=== PATIENT | female | born 1940 | race Caucasian/White ===

== ENCOUNTER 2018-08-30 10:48 | Emergency (ER) | payer MEDICARE, OTHER ==
[~2018-08-30] VITALS: Ht 162.6 cm; Wt 70.5 kg
[2018-08-30] MEDS ORDERED: LORazepam 1 MG tablet PO ONE (10:50)
[2018-08-30] MEDS ORDERED: ondansetron 4mg rapidly disintigrating tab PO ONE (10:55)
[2018-08-30 11:03] VITALS: BP 165/62
[2018-08-30] MEDS ORDERED: LISI40TA4 PO (16:25)
[2018-08-30] MEDS ORDERED: CITA10TA9 PO (16:25)
[2018-08-30] MEDS ORDERED: ROSU20TA2 PO (16:25)
[2018-08-30] MEDS ORDERED: SYN0.088T PO (16:25)
[2018-08-30] MEDS ORDERED: DEXL60CA3 PO (16:25)
[2018-08-30] MEDS ORDERED: CARV-50 PO (16:25)
[2018-08-30] MEDS ORDERED: MELO15TA13 PO (16:25)
== END 2018-08-30 11:30 | disposition home or self-care (01) ==
LOC: ER 10:49
DX: F41.9 Anxiety disorder, unspecified (principal)
CPT/HCPCS: 99284

== ENCOUNTER 2018-09-15 05:24 | Inpatient (IN) | payer MEDICARE, OTHER | END 2018-09-16 16:17 | disposition home or self-care (01) | LOC: PAS IN 05:24 → ORTHO 4S 11:15 | DX: M19.011 Primary osteoarthritis, right shoulder (principal); M75.111 Incomplete rotator cuff tear or rupture of right shoulder, not specified as traumatic; M25.511 Pain in right shoulder ==

== ENCOUNTER 2019-05-13 18:33 | Emergency (ER) | payer MEDICARE, OTHER ==
[~2019-05-13] VITALS: Ht 165.1 cm; Wt 77.0 kg
[~2019-05-13 18:33] MED LIST: CARV-50 PO; CITA10TA9 PO; DEXL60CA3 PO; LEVO50TA PO; LISI40TA4 PO; MELO15TA13 PO; ROSU20TA2 PO
[2019-05-13 19:24] VITALS: BP 172/71
[2019-05-13] MEDS ORDERED: ondansetron 4mg rapidly disintigrating tab PO ONE (20:00)
[2019-05-13] MEDS ORDERED: HYDROcodone/acetaminophen 5mg/325mg tablet PO ONE (20:00)
[2019-05-13] MEDS ORDERED: ONDA4TAB6 PO (20:07)
[2019-05-13] MEDS ORDERED: HYDR-3965 PO (20:07)
== END 2019-05-13 20:28 | disposition home or self-care (01) ==
LOC: ER 18:33
DX: S40.011A Contusion of right shoulder, initial encounter (principal); M75.21 Bicipital tendinitis, right shoulder; Z98.890 Other specified postprocedural states; Z79.899 Other long term (current) drug therapy; X58.XXXA Exposure to other specified factors, initial encounter; Y93.89 Activity, other specified; Y92.89 Other specified places as the place of occurrence of the external cause; Y99.8 Other external cause status
CPT/HCPCS: 29105; 73030; 99284